=== PATIENT | female | born 1935 | race Caucasian/White ===

== ENCOUNTER → 2023-11-16 10:41 | Outpatient (REF) | payer MEDICARE, SELFPAY ==
[2023-11-16 11:31] LABS: ALT (SGPT) 22 U/L (0-35); AST (SGOT) 27 U/L (14-36); Albumin 3.5 g/dl (3.5-5.0); Alkaline Phosphatase 90 U/L (38-126); Blood Urea Nitrogen 27 mg/dl (7-17); Calcium 9.2 mg/dl (8.4-10.2); Carbon Dioxide 26 mmol/L (22-30); Chloride 106 mmol/L (98-107); Glucose 78 mg/dl (70-99); Potassium 4.1 mmol/L (3.5-5.1); Sodium 137 mmol/L (135-145); Total Bilirubin 0.4 mg/dl (0.2-1.3); Total Protein 6.3 g/dl (6.3-8.2); eGFR 54.53
[2023-11-16 11:32] LABS: % Basophils 0.4 % (0-2); % Eosinophils 4.7 % (0-6); % Immature Granulocytes 0.5 % (0-0.5); % Lymphocytes 15.2 % (20.5-51.1); % Monocytes 12.1 % (1.7-9.3); % Neutrophils 67.1 % (42.2-75.2); Absolute Eosinophils 0.4 10^3/uL (0-0.7); Absolute Lymphocytes 1.1 10^3/uL (1.2-3.4); Absolute Monocytes 0.9 10^3/uL (0.1-0.6); Absolute Neutrophils 5.1 10^3/uL (1.4-6.5); Hematocrit 39.3 % (37.0-47.0); Hemoglobin 12.7 g/dL (12.0-16.0); Mean Corp Hgb Conc. 32.3 g/dL (33.0-37.0); Mean Corpuscular Hgb 29.1 pg (27.0-31.0); Mean Corpuscular Volume 89.9 fL (81.0-99.0); Mean Platelet Volume 10.7 fL (7.4-10.4); Nucleated Red Blood Cells % 0 %; Platelet Count 314 10^3/uL (130-400); Red Blood Cell Count 4.37 10^6/uL (4.20-5.40); Red Cell Dist. Width 14.3 % (11.5-14.5); White Blood Cell Count 7.5 10^3/uL (4.8-10.8)
== END ==
LOC: OLABPATH 10:41
PROVIDERS: ATTENDING PHYSICIAN Internal Medicine
DX: K92.0 Hematemesis (principal); D64.9 Anemia, unspecified; D50.9 Iron deficiency anemia, unspecified
CPT/HCPCS: 36415; 80053; 85025

== ENCOUNTER → 2024-03-14 11:17 | Outpatient (REF) | payer MEDICARE, SELFPAY ==
[2024-03-14 13:29] LABS: ALT (SGPT) 23 U/L (0-35); AST (SGOT) 27 U/L (14-36); Albumin 3.6 g/dl (3.5-5.0); Alkaline Phosphatase 103 U/L (38-126); Blood Urea Nitrogen 38 mg/dl (7-17); Calcium 9.4 mg/dl (8.4-10.2); Carbon Dioxide 28 mmol/L (22-30); Chloride 104 mmol/L (98-107); Glucose 67 mg/dl (70-99); Potassium 3.9 mmol/L (3.5-5.1); Sodium 138 mmol/L (135-145); Total Bilirubin 0.3 mg/dl (0.2-1.3); eGFR 48.63
[2024-03-14 13:36] LABS: Prealbumin (Transthyretin) 19.1 mg/dl (17.6-36.0)
[2024-03-14 13:39] LABS: Total Protein 6.1 g/dl (6.3-8.2)
[2024-03-14 13:42] LABS: % Basophils 0.2 % (0-2); % Eosinophils 2.7 % (0-6); % Immature Granulocytes 0.6 % (0-0.5); % Lymphocytes 13.8 % (20.5-51.1); % Monocytes 9.9 % (1.7-9.3); % Neutrophils 72.8 % (42.2-75.2); Absolute Eosinophils 0.2 10^3/uL (0-0.7); Absolute Immature Granulocytes 0.1 10^3/uL (0-0.05); Absolute Lymphocytes 1.2 10^3/uL (1.2-3.4); Absolute Monocytes 0.9 10^3/uL (0.1-0.6); Absolute Neutrophils 6.5 10^3/uL (1.4-6.5); Hematocrit 38.8 % (37.0-47.0); Hemoglobin 12.5 g/dL (12.0-16.0); Mean Corp Hgb Conc. 32.2 g/dL (33.0-37.0); Mean Corpuscular Hgb 29.9 pg (27.0-31.0); Mean Corpuscular Volume 92.8 fL (81.0-99.0); Mean Platelet Volume 10.9 fL (7.4-10.4); Nucleated Red Blood Cells % 0 %; Platelet Count 315 10^3/uL (130-400); Red Blood Cell Count 4.18 10^6/uL (4.20-5.40); Red Cell Dist. Width 14.6 % (11.5-14.5)
[2024-03-14 14:02] LABS: TSH 4.51 uIU/ml (0.47-4.68)
== END ==
LOC: OLABPATH 11:17
PROVIDERS: ATTENDING PHYSICIAN Internal Medicine
DX: E03.9 Hypothyroidism, unspecified (principal); D64.9 Anemia, unspecified; E78.5 Hyperlipidemia, unspecified
CPT/HCPCS: 36415; 80053; 84134; 84443; 85025

== ENCOUNTER → 2024-05-16 09:30 | Outpatient (REF) | payer MEDICARE, SELFPAY ==
[2024-05-16 11:39] LABS: ALT (SGPT) 25 U/L (0-35); AST (SGOT) 31 U/L (14-36); Albumin 3.3 g/dl (3.5-5.0); Alkaline Phosphatase 95 U/L (38-126); Blood Urea Nitrogen 23 mg/dl (7-17); Calcium 9.1 mg/dl (8.4-10.2); Carbon Dioxide 27 mmol/L (22-30); Chloride 105 mmol/L (98-107); Glucose 73 mg/dl (70-99); Sodium 142 mmol/L (135-145); Total Bilirubin 0.3 mg/dl (0.2-1.3); Total Protein 5.8 g/dl (6.3-8.2); eGFR > 60.00
== END ==
LOC: OLABPATH 09:30
PROVIDERS: ATTENDING PHYSICIAN Internal Medicine
DX: I10 Essential (primary) hypertension (principal)
CPT/HCPCS: 36415; 80053

== ENCOUNTER 2024-05-23 19:12 | Emergency (ER) | payer MEDICARE, SELFPAY ==
[2024-05-23 19:17] VITALS: BP 122/94
--- NOTE | 2024-05-23 19:23 | ED.GENMED ---
History of Present Illness
General
Chief Complaint: Fall
Time Seen by Provider: 05/23/24 19:19
History of Present Illness
History of Present Illness:
HPI: [facility] came in from [facility] after a slip and fall. The patient has dementia. I called the daughterGudelia, who indicates that [facility] called her indicating that they were washing her hair and she turned and
slipped and fell. There was a report of a small cut on the back of her head.
EXAM:
GENERAL: Appears in no distress however she appears markedly weak and debilitated
HEENT: Moist oral mucosa
C-SPINE: No midline C-spine tenderness
HEAD: There is a 1 cm laceration with no active bleeding and no hematoma
CARDIOVASCULAR: Regular rate and rhythm
PULMONARY: No respiratory distress, breathing is nonlabored, equal and clear breath sounds
ABDOMEN: Soft and nontender with no peritoneal signs
NEUROLOGIC: The patient has evidence of dementia, not oriented to month or place, strength is equal in all extremities
EXTREMITIES: Moves all extremities equally but weakly, no tenderness, no edema, no pain with rotation of the hip bilaterally
PYSCHIATRIC: The patient is a nonhistorian, poor insight and judgment
TIME OF INITIAL ENCOUNTER:
NUMBER AND COMPLEXITY OF PROBLEMS ADDRESSED AT THE ENCOUNTER
� Chronic conditions affecting care: Dementia
� Acute Exacerbation and/or Progression of Chronic Illness: This is an acute problem
� Differential Diagnosis includes: Scalp laceration, no evidence of extremity fracture based on exam
AMOUNT AND/OR COMPLEXITY OF DATA TO BE REVIEWED AND ANALYZED
� I performed an independent evaluation of and my interpretation is:
EKG:
CT:
X-rays:
Laboratory Studies:
Other:
� Review of other/old records: I reviewed records. The patient was seen here in 2022 with cellulitis of the left leg.
� Clinical information was obtained by an independent historian: I spoke to the daughter, Gudelia over the phone
� Prescriptions/Medications Considered but not given:
� Further testing considered but not performed: Considered CT imaging however given the patient's advanced dementia and the fact that she is DNR to begin with, I do not feel that she would be an appropriate candidate for surgery
even if she were to have an intracranial hemorrhage. Therefore we will hold off on CT imaging.
RISK OF COMPLICATIONS AND/OR MORBIDITY OR MORTALITY OF PATIENT MANAGEMENT
� Social determinants of health affecting care: Resides at [facility]
� Discussion with other providers:
� Escalation of care including admission/observation vs risk of discharge considered: See above
Phy Exam
Physical Exam
Physical Exam:
See HPI
Course
Vital Signs
Initial and Last Documented VS:
Initial Vital Signs
Temp Pulse Resp BP Pulse Ox
97.7 F 58 20 122/94 99
05/23/24 19:17 05/23/24 19:17 05/23/24 19:17 05/23/24 19:17 05/23/24 19:17
Last Documented Vital Signs
Temp Pulse Resp BP Pulse Ox
97.7 F 58 20 122/94 99
05/23/24 19:17 05/23/24 19:17 05/23/24 19:17 05/23/24 19:17 05/23/24 19:17
Procedures
Laceration Closure
Posterior Head:
Status of Wound: clean
Description of Wound Edges: sharp
Skin Closure Material: other (Vicryl Rapide 5-0)
Number of sutures: 1
*Critical Care Note
Total Time (30-74mins, 75-104mins- exclusive of procedures): Not Applicable
ED Attending Note
-
Portions of this chart may have been created with voice recognition software.� Occasional wrong word or��sound alike� substitutions may have occurred due to the inherent limitations of voice recognition software.
Discharge Plan
Departure
Patient Disposition: Home (Routine Discharge)
Date of Disposition: 05/23/24
Time of Disposition: 19:38
Patient with high blood pressure during this ER visit?: Yes
Discharge Problem:
Fall
Instructions: Preventing falls in adults, BLOOD PRESSURE
Prescriptions:
No Action
cephalexin 500 mg capsule
500 mg PO Q8H 7 Days Qty: 21 0RF
Activity Restrictions/Additional Instructions:
I spoke to the daughterGudelia over the phone. Vital signs unremarkable. I see no clear sign of traumatic injury based on physical examination other than a small laceration to the back of the scalp�I have placed 1 absorbable stitch that does not
require removal.
Interventions
Interventions:
*General Assessment Last Done: 05/23/24 19:21
*ED COVID-19 Vaccine History Last Done: 05/23/24 19:21
Discharge Date and Time
Print Language: AUSTR[place]
[2024-05-23 20:28] VITALS: BP 120/86
== END 2024-05-23 20:28 | disposition home or self-care (01) ==
LOC: EMR 19:12
PROVIDERS: EMERGENCY PHYSICIAN Emergency Medicine; FAMILY PHYSICIAN Internal Medicine
DX: S01.01XA Laceration without foreign body of scalp, initial encounter (principal); W01.0XXA Fall on same level from slipping, tripping and stumbling without subsequent striking against object, initial encounter; Y92.89 Other specified places as the place of occurrence of the external cause; R03.0 Elevated blood-pressure reading, without diagnosis of hypertension; F03.90 Unspecified dementia, unspecified severity, without behavioral disturbance, psychotic disturbance, mood disturbance, and anxiety
CPT/HCPCS: 99282; 12001